=== PATIENT | female | born 1995 | race Caucasian/White ===

== ENCOUNTER 2018-11-22 18:36 | Inpatient (IN) | payer BC ==
[~2018-11-22] VITALS: Ht 167.6 cm; Wt 106.4 kg
[2018-11-22 18:54] VITALS: Ht 167.6 cm; Wt 106.4 kg
[2018-11-22] MEDS ORDERED: ACETAMINOPHEN 500 MG TAB PO ONE (23:23)
--- NOTE | 2018-11-23 00:29 | TRIAGE ---
OB Triage Datetime Report Generated by CPN: 11/23/2018 00:29 Datetime: 11/22/2018 23:34 Assessment Type: Admission Assessment Vaginal Bleeding: None Maternal Assessment Level of Consciousness: Fully Conscious DTR's/Clonus: DTRs 2+; No Clonus Headache: Denies Blurred Vision: No Respiratory Effort: Unlabored; Regular Rhythm; Equal Expansion Breath Sounds, Left: Clear and Equal Breath Sounds, Right: Clear and Equal Nausea/Vomiting: Denies RUQ Epigastric Pain: Denies Lower Extremities Edema: None Degree: None Upper Extremities Edema: None Degree: None Facial Edema: None Fall Risk Assessment History of Falling: (0) No Secondary Diagnosis: (0) No Ambulatory Aid: (0) Bedrest/Nurse Assist IV Therapy: (0) No Gait: (0) Normal/Bedrest/Immobile Mental Status: (0) Oriented to Own Ability Fall Score: 0 Fall Risk Score Definition: No Risk: No action required Labor Evaluation Frequency: none Monitor Mode: External Resting Tone College: Relaxed Heart Rate FHR Baseline Rate: 110 Monitor Mode: External US Variability: Moderate 6-25 bpm Accelerations: 15X15 Decelerations: Variable Category: Category II Pain Assessment Pain Scale: 8 Pain Presence: Constant Pain Type: Ache Pain Location: Head Pain Goal: 0 Datetime: 11/22/2018 23:20 Stage of : Antepartum Datetime: 11/22/2018 23:15 Stage of : Antepartum Monitor Mode: External Monitor Mode: External US Datetime: 11/22/2018 23:00 Time of Arrival: 11/22/2018 22:15 EGA: 36.2 Arrived By: Ambulatory Arrived From: Dr. Office Datetime: 11/22/2018 21:45 Stage of : OB Triage Labor Evaluation Frequency: none Monitor Mode: External Pattern: Normal: <= 5 Contractions in 10 Minutes Resting Tone College: Relaxed Heart Rate FHR Baseline Rate: 110 Monitor Mode: External US Variability: Moderate 6-25 bpm Accelerations: 15X15 Comments: Recurrent loss of FHTs due to activity. Pain Assessment Pain Scale: 0 Pain Presence: None/Denies Pain Type: N/A Pain Relief Measures: Comfort Measures Datetime: 11/22/2018 21:44 Monitor Mode: External US Comments: Continuous attempts to put baby on the monitor. movement audible. Unable to get FHT s for longer than a couple of seconds at a time. Datetime: 11/22/2018 21:38 Monitor Mode: External US Comments: Continuous attempts to put baby on the monitor. movement audible. Unable to get FHT s for longer than a couple of seconds at a time. Datetime: 11/22/2018 21:24 Monitor Mode: External US Datetime: 11/22/2018 21:23 Monitor Mode: External US Datetime: 11/22/2018 20:59 Comments: Attempting to find FHTs. Audible movt. Datetime: 11/22/2018 20:45 Stage of : OB Triage Labor Evaluation Frequency: none Monitor Mode: External Pattern: Normal: <= 5 Contractions in 10 Minutes Resting Tone College: Relaxed Heart Rate FHR Baseline Rate: 120 Monitor Mode: External US Variability: Moderate 6-25 bpm Accelerations: Prolonged Decelerations: None Category: Category I Pain Assessment Pain Scale: 0 Pain Presence: None/Denies Pain Type: N/A Pain Relief Measures: Comfort Measures Datetime: 11/22/2018 20:44 Monitor Mode: External US Datetime: 11/22/2018 20:35 Stage of : OB Triage Datetime: 11/22/2018 19:45 Stage of : OB Triage Labor Evaluation Frequency: none Monitor Mode: External Pattern: Normal: <= 5 Contractions in 10 Minutes Resting Tone College: Relaxed Heart Rate FHR Baseline Rate: 120 Monitor Mode: External US Variability: Moderate 6-25 bpm Accelerations: Prolonged Decelerations: Variable Category: Category II Datetime: 11/22/2018 18:45 Assessment Type: Triage Maternal Assessment Level of Consciousness: Fully Conscious DTR's/Clonus: DTRs 2+; No Clonus Headache: Denies Blurred Vision: No Respiratory Effort: Unlabored; Regular Rhythm; Equal Expansion Breath Sounds, Left: Clear and Equal Breath Sounds, Right: Clear and Equal Nausea/Vomiting: Denies RUQ Epigastric Pain: Denies Lower Extremities Edema: None Degree: None Upper Extremities Edema: None Degree: None Facial Edema: None Fall Risk Assessment History of Falling: (0) No Secondary Diagnosis: (0) No Ambulatory Aid: (0) Bedrest/Nurse Assist IV Therapy: (0) No Gait: (0) Normal/Bedrest/Immobile Mental Status: (0) Oriented to Own Ability Fall Score: 0 Fall Risk Score Definition: No Risk: No action required Datetime: 11/22/2018 18:40 EGA: 36.2 Provider Notified: Traci (Annotations: Data stored by CPN on behalf of user) Datetime: 11/22/2018 18:29 Time of Arrival: 11/22/2018 18:29 Arrived By: Ambulatory Arrived From: Office Chief Complaint: R/O PIH PT DENIES ANY BLURRED VISION, EPIGASTRIC PAIN, HAND AND FACE SWELLING AND STATES + OCCIPITAL HEADACHE. Movement: Present Contractions: Denies/Absent Rupture of Membranes: Denies Vaginal Bleeding: None Vaginal Discharge: Denies Abdominal Trauma: Not Applicable Patient Complaints: Headache Additional Patient Complaints: NONE Time Provider Notified: 11/22/2018 20:05 Provider Notified: Traci Initial Plan: EFM, VS, PIH panel, BPP, ADA, EFW
--- NOTE | 2018-11-23 08:56 | HP ---
Date/Time of Note Date/Time of Note DATE: 11/23/18 TIME: 07:35 OB - History Hx of Present Free Text/Dictation 23y.o at 36w3d here at triage for evaluation of possible elevated plood pressure. Her course was complicated with UTI and anemia , which was started at 11w , size was comparable with date Had x3 previous C/S all the lab for PIH was WNL except anemia BPP 8/8 ADA 9.58 EFW 2880gm 50% but tracing was difficult to interpret the base line,decide to do extended observation ,and in am will get MFM opinion. ADD: patient also for tubal sterilization. Chief Complaint: HTN ? Estimated Due Date: December 18, 2018 : 4 Para: 3 Spontaneous : 0 Therapeutic : 0 Care: Good Care Ultrasounds: Normal mid trimester US Obstetrical Complications: Gestational Hypertension Medical Complications: None Past Family/Social History * Past Medical, Surgical, Family and Obstetric Histories reviewed from chart. Blood Type: O+ Rubella: immune RPR/VDRL: Negative GBS Status: Negative HBsAG: Unknown OB Admission Exam Physical Exam HEENT: WNL Heart: Rhythm Normal Lungs: Clear, Equal Abdomen: WNL Extremities: Normal Reflexes: Normal Cervical Dilatation: other Station: Other Membranes: Intact Amniotic Fluid: Unevaluable Heart Rate: 120's Varibility: Marked Contractions on Admission: None Last 72 hours Lab Results CBC & BMP 11/22/18 19:34 Liver Function Test 11/22/18 19:34 Alanine Aminotransferase (ALT/SGPT) 13 Albumin 3.6 Alkaline Phosphatase 104 Aspartate Amino Transf (AST/SGOT) 15 Direct Bilirubin 0.00 Total Protein 6.8 OB Assessment/Plan Other Assessment: IUP 36w3d ? CAT I constant accelerations, no clear baseline Plan: Other (extended observation , MFM consult) TRAVIS ROSENTHAL MD Nov 23, 2018 08:56
--- NOTE | 2018-11-23 10:22 | PD.PPDC ---
AVIATION NEUROPSYCHOLOGIST Discharge Instruction Diagnosis [id number] Final Diagnosis: Boobd7n IUP 36w Condition Lwnwb5Di Patient Condition: Xujzy9n Stable Diet [id number] Diet: Nzpeh6d Resume Regular Diet Activity/Restrictions Ngrwk9Cc Activity: Vnxag8c Normal Activity Follow-up Provider Information: f/u with her OB on mon TRAVIS ROSENTHAL MD Nov 23, 2018 10:22
--- NOTE | 2018-11-23 11:13 | QN ---
Documentation Comment later part of tracing was better than last night patient was anxious to go home since she is from [place] ,where her kids are was plan to discharge but Dr lemus review the tracing ,advise her keep patient and continue monitor and do 24hrhr urine for protein and cr. spoke to Dr Aviles . TRAVIS ROSENTHAL MD Nov 23, 2018 11:13
== END 2018-11-23 11:52 | disposition home or self-care (01) | DRG 833 ==
LOC: OBT 18:36 → L-D 18:38 → OBT 22:15 → PP1 22:15 → L-D 11-23 00:01 → PP1 11-23 00:05
PROVIDERS: ADMIT Specialist; ATTEND Specialist
DX: O13.3 Gestational [pregnancy-induced] hypertension without significant proteinuria, third trimester (principal); Z3A.36 36 weeks gestation of pregnancy
CPT/HCPCS: 76815; 76818; 80053; 81001; 84560; 85025; 85362; 85384; 85610; 85730; G0463

== ENCOUNTER 2018-12-07 12:27 | Inpatient (IN) | payer BC ==
[~2018-12-07] VITALS: Ht 167.6 cm; Wt 106.5 kg
[2018-12-07 12:43] VITALS: Ht 167.6 cm; Wt 106.5 kg
[2018-12-07] MEDS ORDERED: METHYLERGONOVINE 0.2 MG INJ IM PRN (13:00)
[2018-12-07] MEDS ORDERED: CITRIC ACID/NA CITRATE 30 ML CUP PO ONE (13:00)
[2018-12-07] MEDS ORDERED: CARBOPROST 250 MCG INJ IM PRN (13:00)
[2018-12-07] MEDS ORDERED: CEFAZOLIN 2 GM/50 ML (PMX) 50 ML IVPB SCH (13:00)
[2018-12-07] MEDS ORDERED: OXYTOCIN 30 UNITS/LR 500 ML IV PRN (13:00)
[2018-12-07] MEDS ORDERED: MISOPROSTOL 200 MCG TAB PR PRN ×2 (13:00→15:30)
[2018-12-07] MEDS: LACTATED RINGER'S 1,000 ML IV SCH ×2 (13:15→20:40)
--- NOTE | 2018-12-07 14:44 | PREAC ---
Date/Time of Note Date/Time of Note DATE: 12/07/18 TIME: 14:42 Anesthesia Eval and Record Evaluation Time Pre-Procedure Interview DATE: 12/07/18 TIME: 14:42 Age 23 Sex female NPO: 8 hrs Preoperative diagnosis repeat csection *3 Planned procedure csection BTL Past Medical History Past Medical History: Includes GI: Obesity Surgery & Anesthesia Issues No known issue Meds Anticoagulation: No Beta Nini within 24 hr: No Reason Beta Nini not given: Pt. not on B-Nini Current Medications Lactated Ringer's 1,000 ml @ 125 mls/hr Q8H IV Last administered on 12/07/18at 13:15; Admin Dose 125 MLS/HR; Start 12/07/18 at 12:40 Cefazolin Sodium/ Dextrose 50 ml @ 100 mls/hr ONCE IVPB ; Start 12/07/18 at 13:00 Oxytocin/Lactated Ringer's 500 ml @ 125 mls/hr POST IV ; Start 12/07/18 at 13:00 Oxytocin/Lactated Ringer's 500 ml @ 0 mls/hr ONCE PRN IV .VAGINAL BLEEDING; Start 12/07/18 at 13:00 Methylergonovine Maleate (Methergine) 0.2 mg ONCE PRN IM .VAGINAL BLEEDING; Start 12/07/18 at 13:00 Carboprost Tromethamine (Hemabate) 250 mcg ONCE PRN IM .VAGINAL BLEEDING; Start 12/07/18 at 13:00 Misoprostol (Cytotec) 1,000 mcg ONCE PRN IN .VAGINAL BLEEDING; Start 12/07/18 at 13:00 Meds reviewed: Yes Allergies Coded Allergies: No Known Allergy (Unverified , 11/22/18) Allergies Reviewed: Yes Labs/Studies Labs Reviewed: Reviewed by anesthesiologist Result Diagram: 12/07/18 1347 12/07/18 1347 Laboratory Tests 12/07/18 13:47 Blood Bank Test 12/07/18 13:47 Antibody Screen NEGATIVE Blood Type O POSITIVE Rh Immune Globulin Candidate NO test: Positive Studies: ECG (n/a) Pre-procedure Exam Airway: Adequate mouth opening Mallampati: Mallampati I Teeth: Normal Lung: Normal Heart: Normal ASA Physical Status ASA physical status: 2 Emergency: None Planned Anesthetic General/MAC: ETT Neuraxial: Spinal, Epidural Planned Pain Management Sub-arachniod narcotics, Single shot nerve block Pre-operative Attestations Prior to commencing anesthesia and surgery, the patient was re-evaluated, there was verification of: *The patient's identity *The results of appropriate recent lab work and preoperative vital signs *The above evaluation not changing prior to induction *Anesthetic plan, risk benefits, alternative and complications discussed with patient/family; questions answered; patient/family understands, accepts and wishes to proceed. LAURA ARZATE MD December 07, 2018 14:44
[2018-12-07] MEDS ORDERED: OXYTOCIN 30 UNITS/LR 500 ML IV ONE ×2 (15:02→16:20)
[2018-12-07] MEDS ORDERED: METOCLOPRAMIDE 10 MG INJ ONE (15:03)
[2018-12-07] MEDS ORDERED: ONDANSETRON 4 MG INJ ONE (15:03)
[2018-12-07] MEDS ORDERED: morphine SULFATE/PF (10 MG/10 ML) INJ ONE (15:03)
[2018-12-07] MEDS ORDERED: KETOROLAC 30 MG INJ ONE (15:03)
[2018-12-07] MEDS ORDERED: LACTATED RINGER'S 1,000 ML IV SCH (15:10)
--- NOTE | 2018-12-07 15:10 | HP ---
Date/Time of Note Date/Time of Note DATE: 12/07/18 TIME: 15:05 OB - History Hx of Present Free Text/Dictation 23 O with EDC 12/18/2018 with IUP at 38.3 weeks c/o severe worsening headaches and RUQ pain and visual changes. she is very concerned about these symptoms. she reports she developed these symptoms with all her previous pregnancies and the symptoms only resolved after delivery. she is demanding to proceed with delivery. She also has history of previous delivery x 3, who desires to have repeat delivery and Permanent sterilization. I discussed with the patient the risks, benefits, indications, and alternatives of procedure including but not limited to risks of infection, bleeding, damage to other organs, bowel, bladder, hernia formation, scar formation, possibility of blood transfusion, possible need for emergency hysterectomy, as well as the fact that tubal ligation may fail and there is 1 to 2% risk of failure over lifetime of tubal ligations and the fact that tubal ligation is permanent and irreversible. She was allowed to ask questions. All her questions were answered. Informed consent has been obtained. Care: Good Care Ultrasounds: No ultrasounds Obstetrical Complications: Other (she may have atypical preeclampsia ) Medical Complications: None Past Family/Social History * Past Medical, Surgical, Family and Obstetric Histories reviewed from chart. OB Admission Exam Physical Exam HEENT: WNL Heart: Rhythm Normal Lungs: Clear, Equal Abdomen: WNL Extremities: Normal Reflexes: Normal Last 72 hours Lab Results CBC & BMP 12/07/18 13:47 Liver Function Test 12/07/18 13:47 Alanine Aminotransferase (ALT/SGPT) 14 Albumin 3.4 Alkaline Phosphatase 111 Aspartate Amino Transf (AST/SGOT) 15 Direct Bilirubin 0.00 Total Protein 6.3 OB Assessment/Plan Other Assessment: IUP 38.3 weeks h/o 3 prior deliveries desires permanent sterilization possible atypical preeclampsia Other plan: Repeat delivery and tubal sterilization JEFFREY GUSTAFSON MD December 07, 2018 15:10
[2018-12-07] MEDS ORDERED: CEFAZOLIN 1 GM INJ ONE (15:17)
[2018-12-07] MEDS ORDERED: NA PHOSPHATE/BIPHOS 133 ML ENEMA PR PRN (15:30)
[2018-12-07] MEDS ORDERED: OXYCODONE/ACETAMINOPHEN (5/325) TAB PO PRN ×2 (15:30)
[2018-12-07] MEDS ORDERED: LANOLIN HPA 1 PKT TOP PRN (15:30)
--- NOTE | 2018-12-07 16:17 | OPR ---
Date/Time of Note Date/Time of Note DATE: 12/07/18 TIME: 16:14 Operative Report Procedure Date: December 07, 2018 Preoperative Diagnosis at 38.3 weeks h/o 3 prior deliveries Desires Permanent Sterilization Atypical Preeclampsia Postoperative Diagnosis same Operation/Procedure Performed Repeat Delivery Bilateral Salpingectomies Surgeon Deya Aviles MD [employer] Jaylin Bruno MD Anesthesia Type: spinal Estimated Blood Loss: other (700 ml) Transfusion none Specimen Distal segments of both tubes Grafts/Implants none Tubes/Drains Goncalves Cath Complications none Pt Condition Post Procedure: stable Disposition: PACU Procedure Description The risks, benefits, indications, alternatives of procedure including, but not limited to risk of infection, bleeding, damage to other organs, bowel, bladder, hernia formation, scar formation, possibility of blood transfusions, the risks of tubal ligation such as failure and future pregnancies were discussed with the patient. The fact that BTL is permanent and irreversible also discussed with patient. She was allowed to ask questions. All her questions were answered. Informed consent was obtained. DESCRIPTION OF PROCEDURE: She was taken to the operating room. Spinal anesthesia was induced. She was prepped and draped in the usual sterile fashion. Surgical time out one. Anesthesia was tested to be adequate. With permission from anesthesiologist, a knife was used to make a Pfannenstiel skin incision. The incision was taken down in layers. The fascia was cut, undermined and from the underlying muscle using sharp and blunt dissection. All the bleeders were cauterized. Peritoneum was entered bluntly. A low transverse incision was developed over the uterus. Amniotic fluid was clear and adequate. A viable infant in vertex presentation was delivered without any difficulty. The cord was clamped and cut, handed to awaiting team. Placenta was then delivered. Uterus was exteriorized, wrapped around a moist lap. Inside uterus was cleaned using a dry lap. All residual membranes were removed. The uterine incision was then closed using #1 Monocryl in 2 layers. A 5 cm distal end of the right tube was ligated 3 times using 0 plain tie and the ligated portion was cut, sent to pathology. Same procedure was done on the contralateral side. The uterus was inserted back inside the abdominal cavity. Irrigation was done carefully. Careful evaluation of the uterine incision revealed no further bleeding. The tubal ligation sites were evaluated carefully. There was no bleeding. The peritoneum and rectus muscles and fascia were evaluated. All bleeders cauterized. Peritoneum was closed using 2-0 Monocryl. At this time, the count was correct. Rectus muscle was reapproximated using 2-0 Monocryl. Rectus fascia was closed using #1 Vicryl. Subcutaneous tissue was cleaned and irrigated. All bleeders cauterized and the skin closed using 4-0 Monocryl. All counts correct. DEYA AVILES MD December 07, 2018 16:17
[2018-12-07] MEDS: OXYTOCIN 30 UNITS/LR 500 ML IV SCH ×2 (16:46→19:17)
[2018-12-07] MEDS: IBUPROFEN 600 MG TAB PO SCH ×2 (18:00→23:32)
[2018-12-07 20:00] VITALS: BP 130/67; PULSE 88; RESP 18
[2018-12-07] MEDS ORDERED: morphine 2 MG INJ IV PRN ×3 (20:00)
[2018-12-07] MEDS ORDERED: ONDANSETRON 4 MG INJ IV PRN ×2 (20:00)
[2018-12-07] MEDS ORDERED: KETOROLAC 30 MG INJ IV PRN ×2 (20:00)
[2018-12-07] MEDS ORDERED: DIPHENHYDRAMINE 50 MG INJ IV PRN ×2 (20:00)
[2018-12-07] MEDS ORDERED: NALOXONE (0.4 MG/ML) INJ IV PRN (20:00)
[2018-12-07] MEDS ORDERED: morphine (1 MG/ML) 10ML SYRINGE IV PRN ×3 (20:00)
[2018-12-07] MEDS: SENNA/DOCUSATE NA (8.6MG/50MG) TAB PO SCH (21:00)
[2018-12-08] MEDS: LACTATED RINGER'S 1,000 ML IV SCH ×2 (00:13→08:01)
[2018-12-08 00:15] VITALS: BP 129/68; PULSE 75; RESP 18
[2018-12-08 04:30] VITALS: BP 120/58; PULSE 88; RESP 18
[2018-12-08] MEDS: IBUPROFEN 600 MG TAB PO SCH ×4 (05:30→23:46)
[2018-12-08 08:00] VITALS: BP 106/68; PULSE 76; RESP 17
--- NOTE | 2018-12-08 08:03 | PAC ---
Date/Time of Note Date/Time of Note DATE: 12/08/18 TIME: 08:03 Post-Anesthesia Notes Post-Anesthesia Note Last documented vital signs Vital Signs Date Temp Pulse Resp B/P (MAP) Pulse Ox O2 O2 Flow FiO2 Time Delivery Rate 12/08/18 98.6 88 18 120/58 98 Room Air 04:30 (78) 12/08/18 98 00:15 Activity: WNL Respiratory function: WNL Cardiovascular function: WNL Mental status: Baseline Pain reasonably controlled: Yes Hydration appropriate: Yes Nausea/Vomiting absent: No LAURA ARZATE MD December 08, 2018 08:03
--- NOTE | 2018-12-08 08:04 | OPPN ---
Date/Time of Note Date/Time of Note DATE: 12/08/18 TIME: 08:04 Anesthesia Follow up Anesthesia Follow up Last documented vital signs Vital Signs Date Temp Pulse Resp B/P (MAP) Pulse Ox O2 O2 Flow FiO2 Time Delivery Rate 12/08/18 98.6 88 18 120/58 Room Air 04:30 (78) 12/08/18 98 00:15 Respiratory function: WNL Cardiovascular function: WNL Comments A23 year Female POD #1 under spinal and duramorph for post op pain is doing well. no headache, n/v. itching. neural deficit, SOB, pain LAURA ARZATE MD December 08, 2018 08:04
[2018-12-08] MEDS: SENNA/DOCUSATE NA (8.6MG/50MG) TAB PO SCH ×2 (09:03→21:55)
[2018-12-08 12:00] VITALS: BP 115/72; PULSE 95; RESP 17
[2018-12-08 15:45] VITALS: BP 118/80; PULSE 93; RESP 18
--- NOTE | 2018-12-08 16:58 | PN ---
Date/Time of Note Date/Time of Note DATE: 12/08/18 TIME: 16:56 OB Subjective Subjective Subjective Patient reports decreased vaginal bleeding. Denies any shortness of breath or chest pain. Passed flatus. Has not been out of the bed yet. Pain well- controlled with p.o. pain medication OB Objective Objective Objective General appearance: Alert and oriented x4 does not appear to be in any acute distress Abdomen: Soft, fundus palpable at the level of umbilicus. Appropriate tenderness in the incision. Incision: Clean dry and intact Extremities: No calf tenderness, no click no edema no cord palpable SCDs around Goncalves draining clear yellow urine VS - Last 72 Hours, by Label Date Temp Pulse Resp B/P (MAP) Pulse Ox O2 O2 Flow FiO2 Time Delivery Rate 12/08/18 99.3 93 18 118/80 98 15:45 (93) 12/08/18 98.6 95 17 115/72 97 Room Air 12:00 (86) 12/08/18 98.6 76 17 106/68 98 Room Air 08:00 (81) 12/08/18 98.6 88 18 120/58 Room Air 04:30 (78) 12/08/18 99.0 75 18 129/68 98 Room Air 00:15 (88) 12/07/18 99.0 88 18 130/67 98 Room Air 20:00 (88) Laboratory Tests Test 12/08/18 06:30 12/08/18 06:39 White Blood Count 12.1 H Red Blood Count 3.76 L Hemoglobin 8.8 L Hematocrit 28.1 L Mean Corpuscular Volume 74.7 L Mean Corpuscular Hemoglobin 23.4 L Mean Corpuscular Hemoglobin Concent 31.3 L Red Cell Distribution Width 15.5 H Platelet Count 206 Mean Platelet Volume 10.5 H Immature Granulocytes % 0.700 H Neutrophils % 80.1 H Lymphocytes % 10.0 L Monocytes % 8.3 Eosinophils % 0.7 Basophils % 0.2 Nucleated Red Blood Cells % 0.0 Immature Granulocytes # 0.090 H Neutrophils # 9.7 H Lymphocytes # 1.2 Monocytes # 1.0 H Eosinophils # 0.1 Basophils # 0.0 Nucleated Red Blood Cells # 0.0 Lab Scanned Report REFERENCE LAB OB Assessment/Plan Other Assessment: Postoperative day #1 status post repeat and BTL Anemia, asymptomatic Routine postop care DC Goncalves Ambulation after DC Goncalves Incentive spirometer Iron twice a day with stool softener after she has bowel movement KIMBERLY RUTH MD December 08, 2018 16:58
[2018-12-08 20:00] VITALS: BP 116/56; PULSE 79; RESP 18
[2018-12-08] MEDS: POLYSACCHARIDE IRON COMPLEX CAP PO SCH (21:55)
[2018-12-09 04:00] VITALS: BP 117/69; PULSE 87; RESP 16
[2018-12-09] MEDS: IBUPROFEN 600 MG TAB PO SCH ×2 (05:39→11:41)
[2018-12-09 08:45] VITALS: BP 113/73; PULSE 80; RESP 17
[2018-12-09] MEDS: SENNA/DOCUSATE NA (8.6MG/50MG) TAB PO SCH (09:26)
[2018-12-09] MEDS: POLYSACCHARIDE IRON COMPLEX CAP PO SCH (09:26)
--- NOTE | 2018-12-09 11:20 | QN ---
Documentation Comment POD# 3 is stable afebrile tolerates diet No VB +BM +voids VS stable Gen NAD Abd soft NT ND Incision intact Genitalia No blood at perineum --->Discharge Home precautions discussed Questions answered Follow up with provider JONNY AMAYA M.D. December 09, 2018 11:20
--- NOTE | 2018-12-09 11:21 | DS ---
Date/Time of Note Date/Time of Note DATE: 12/09/18 TIME: 11:21 Discharge Summary Admission/Discharge Info Admit Date/Time December 07, 2018 at 12:27 Discharge Date/Time 12/09/2018 Discharge Diagnosis Patient Condition: Good Hospital Course uneventful Primary Care Provider Not On Staff Doctor JONNY AMAYA M.D. December 09, 2018 11:21
[2018-12-10] MEDS ORDERED: DIPHTH/TET/ACEL PERTUSS (ADULT) 0.5 ML VIAL IM* ONE (09:00)
[2018-12-10] MEDS ORDERED: MEASLES,MUMPS,RUBELLA VACCINE INJ SC* ONE (09:00)
--- NOTE | 2018-12-10 13:07 | DELSUM ---
Delivery Summary A-C Datetime Report Generated by CPN: 12/10/2018 13:07 DELIVERY PERSONNEL Program Lead: Duvo, Abena MATERNAL INFORMATION Delivery Anesthesia: Spinal Medications in Delivery: see anesthesia records Delivery QBL (ml): 700 Placenta Cultured: No Maternal Complications: Other Other Maternal Complications: pre-eclampsia LABOR SUMMARY EDC: 12/18/2018 00:00 No. Babies in Womb: 1 Attempted: No Labor Anesthesia: None LABOR INFORMATION Reason for Induction: Not Applicable Oxytocin: N/A Group B Beta Strep: Negative Antibiotics # of Doses: 1 Antibiotics Time of Last Dose: 12/07/2018 15:16 Steroids Given: None Reason Steroids Not Administered: Not Applicable MEMBRANES Membranes Rupture Method: Artificial Rupture of Membranes: 12/07/2018 15:36 Length of Rupture (hr): 0.02 Amniotic Fluid Color: Clear Amniotic Fluid Amount: Moderate Amniotic Fluid Odor: None STAGES OF LABOR Stage 3 hr: 0 Stage 3 min: 1 CSECTION DELIVERY Primary Indication: Repeat Elective Secondary Indication: PIH CSection Urgency: Elective CSection Incidence: Repeat Labor: No Labor Elective: N/A CSection Incision: Lower Uterine Transverse Sterilization Procedure: Rufe BABY A INFORMATION Infant Delivery Date/Time: 12/07/2018 15:37 Method of Delivery: Born in Route : No : N/A Forceps: N/A Vacuum Extraction: N/A Shoulder Dystocia : N/A SHOULDER DYSTOCIA BABY A Infant Delivery Date/Time: 12/07/2018 15:37 PRESENTATION/POSITION BABY A Presentation: Cephalic Cephalic Presentation: Vertex Vertex Position: Left Occipital Anterior Breech Presentation: N/A PLACENTA INFORMATION BABY A Placenta Delivery Time : 12/07/2018 15:38 Placenta Method of Delivery: Manual Removal Placenta Status: Delivered SCORES BABY A Heart Rate 1 min: >100 bpm Resp Effort 1 min: Good Cry Reflex Irritability 1 min: Cough/Sneeze/Pulls Away Muscle Tone 1 min: Active Motion Color 1 min: Blue/Pale Resuscitation Effort 1 min: Tactile Stimulation SCORE 1 MIN: 8 Heart Rate 5 min: >100 bpm Resp Effort 5 min: Good Cry Reflex Irritability 5 min: Cough/Sneeze/Pulls Away Muscle Tone 5 min: Active Motion Color 5 min: Body Hillman, Extremit Blue Resuscitation Effort 5 min: Tactile Stimulation SCORE 5 MIN: 9 INFORMATION BABY A Gestational Age at Delivery: 38.3 Gestational Status: Early Term- 37- 38.6 Weeks Infant Outcome : Liveborn Condition : Stable Infant Sex: Female IDENTIFICATION/MEDS BABY A ID Band Number: [id number] ID Band Location: Right Leg; Left Arm Sensor Applied: Yes Sensor Number: [id number] Sensor Location : Cord Clamp Vitamin K Given : Not Given Erythromycin Given: Not Given WEIGHT/LENGTH BABY A Birthweight (gm): 3095 Infant Weight (lb): 6 Infant Weight (oz): 13 Infant Length (in): 19.00 Infant Length (cm): 48.26 CORD INFORMATION BABY A No. Cord Vessels: 3 Nuchal Cord : N/A Cord Blood Taken: Yes Suction: Mouth; Nose ASSESSMENT BABY A Complications: Multiple Variable Decels Physical Findings at Delivery: Within Normal Limits Infant Respirations: Appears Normal Nut [employer]/ALS Called : Yes Infant Care By: En CHO Transferred To: Remains with Mother
== END 2018-12-09 13:06 | disposition home or self-care (01) | DRG 785 ==
LOC: L-D 12:27 → PP1 20:01 → EDUNIT# 12-11 07:30
PROVIDERS: ADMIT Specialist; ATTEND Specialist
PROC: 0UB70ZZ Excision of Bilateral Fallopian Tubes, Open Approach (ICD-10-PCS; 2018-12-07)
PROC: 10D00Z1 Extraction of Products of Conception, Low, Open Approach (ICD-10-PCS; principal; 2018-12-07 14:00)
DX: O14.94 Unspecified pre-eclampsia, complicating childbirth (principal); O34.219 Maternal care for unspecified type scar from previous cesarean delivery; O99.214 Obesity complicating childbirth; E66.9 Obesity, unspecified; O99.02 Anemia complicating childbirth; D64.9 Anemia, unspecified; G89.18 Other acute postprocedural pain; Z3A.38 38 weeks gestation of pregnancy; Z37.0 Single live birth; Z30.2 Encounter for sterilization
CPT/HCPCS: 80053; 84560; 85025; 85384; 85610; 85730; 86592; 86850; 86900; 86901; 87340; 88302; 99464; J0690; J1885; J2274; J2405; J2590; J2765; J7120